=== PATIENT | female | born 1980 | race Caucasian/White ===

== ENCOUNTER → 2016-08-04 | Outpatient (CLI) | payer MEDICAID ==
[2016-08-04 17:39] LABS: Basophils # (A) 0.1 k/uL (0-0.2); Basophils % (A) 1 %; CH 33.2; CHCM 34.5; Eosinophils # (A) 0.2 k/uL (0-0.7); Eosinophils % (A) 2 %; HCT 42.2 % (34.0-46.0); HDW 2.54; HGB 14.2 gm/dL (11.4-16.0); Luc # (Auto) 0.24; Luc % (Auto) 3; Lymphocytes # (A) 2.6 k/uL (1.0-4.8); Lymphocytes % (A) 35 %; MCH 32.4 pg (25.0-35.0); MCHC 33.5 g/dL (31.0-37.0); MCV 96.7 fL (80.0-100.0); Mean Platelet Volume 7.7; Monocytes # (A) 0.3 k/uL (0-1.0); Monocytes % (A) 4 %; Neutrophils # (A) 4.1 k/uL (1.3-7.7); Neutrophils % (A) 55 %; RBC 4.37 m/uL (3.80-5.40); RDW 12.5 % (11.5-15.5); WBC 7.4 k/uL (3.8-10.6)
[2016-08-04 17:51] LABS: ALT 33 U/L (9-52); AST 23 U/L (14-36); Alkaline Phosphatase 27 U/L (38-126); Anion Gap 14 mmol/L; Blood Urea Nitrogen 15 mg/dL (7-17); Calcium 10.3 mg/dL (8.4-10.2); Carbon Dioxide 26 mmol/L (22-30); Chloride 101 mmol/L (98-107); Cholesterol 199 mg/dL (<200); Glucose 86 mg/dL (74-99); HDL Cholesterol 52 mg/dL (40-60); Iron 87 ug/dL (37-170); Non-African American GFR(MDRD) >60 (>60 ml/min/1.73 sqM); Potassium 4.6 mmol/L (3.5-5.1); Sodium 141 mmol/L (137-145); Total Bilirubin 0.4 mg/dL (0.2-1.3); Total Protein 8.2 g/dL (6.3-8.2); Triglycerides 286 mg/dL (<150)
[2016-08-04 18:00] LABS: % Iron Saturation 20.7 % (20-50); Total Iron Binding Capacity 420 ug/dL (265-497)
== END | disposition home or self-care (01) ==
LOC: LABWHC1 17:10
PROVIDERS: ATTEND Physician Assistant Medical
DX: E78.2 Mixed hyperlipidemia (principal); D50.9 Iron deficiency anemia, unspecified
CPT/HCPCS: 36415; 80053; 80061; 82728; 83540; 83550; 84439; 84443; 85025

== ENCOUNTER → 2016-10-12 | Outpatient (CLI) | payer MEDICAID ==
--- NOTE | 2016-10-12 22:36 | XR ---
EXAMINATION TYPE: XR lumbosacral spine min 4V DATE OF EXAM: 10/12/2016 7:42 PM COMPARISON: 02/11/2016 HISTORY: 36-year-old female with fall and back pain TECHNIQUE: 5 views FINDINGS: 5 lumbar type vertebral bodies. No pars interarticularis defect. Vertebral body heights are preserved and alignment is maintained. Redemonstrated moderate degenerative disc interspace narrowing at L5-S1 and mild at L4-L5. Endplate sclerosis and spondylosis at L5-S1. Hypertrophic facet arthropathy lower lumbar spine. IMPRESSION: Similar moderate to severe degenerative disc disease at L5-S1. Mild degenerative disc disease at L4-L 5 may have slightly progressed given slightly more disc interspace narrowing. Hypertrophic facet arth ropathy lower lumbar spine again seen. No vertebral compression collapse or malalignment.
== END ==
LOC: RADXRMAIN 19:27
PROVIDERS: ATTEND Emergency Medicine
DX: M51.37 Other intervertebral disc degeneration, lumbosacral region (principal); M12.88 Other specific arthropathies, not elsewhere classified, other specified site
CPT/HCPCS: 72110

== ENCOUNTER → 2016-12-30 | Outpatient (CLI) | payer MEDICAID ==
[2016-12-30 18:24] LABS: % Iron Saturation 25.4 % (20-50)
== END | disposition home or self-care (01) ==
LOC: LABWHC1 17:20
PROVIDERS: ATTEND Physician Assistant Medical
DX: D50.9 Iron deficiency anemia, unspecified (principal)
CPT/HCPCS: 36415; 82728; 83540; 83550

== ENCOUNTER → 2017-02-21 | Outpatient (CLI) | payer MEDICAID ==
--- NOTE | 2017-02-22 09:35 | XR ---
EXAMINATION TYPE: XR ankle complete RT DATE OF EXAM: 02/21/2017 COMPARISON: NONE HISTORY: Right ankle pain TECHNIQUE: Three-view right ankle FINDINGS: Ankle mortise is intact. Soft tissues are normal. Plantar calcaneal heel spur is present. Follow-up exam can be performed 7-10 days from acute trauma for continued pain. IMPRESSION: 1. Normal three-view right ankle
== END | disposition home or self-care (01) ==
LOC: RADXRMAIN 19:19
PROVIDERS: ATTEND Emergency Medicine
DX: M25.571 Pain in right ankle and joints of right foot (principal)

== ENCOUNTER 2021-01-31 01:37 | Emergency (ER) | payer OTHER ==
[2021-01-31 01:51] VITALS: BP 164/94; PULSE 100; TEMP 98.9
[2021-01-31 02:06] VITALS: RESP 20
--- NOTE | 2021-01-31 02:28 | XR ---
EXAMINATION TYPE: XR chest 2V DATE OF EXAM: 01/31/2021 COMPARISON: NONE HISTORY: Cough TECHNIQUE: 2 views FINDINGS: Heart and mediastinum are normal. Lungs are clear. Diaphragm is normal. Bony thorax appears normal. IMPRESSION: Normal chest.
--- NOTE | 2021-01-31 02:36 | ED ---
General Adult HPI - General Chief complaint: Fever Stated complaint: Fever, SOB Time Seen by Provider: 01/31/21 01:47 Source: patient, family Mode of arrival: ambulatory Limitations: no limitations - History of Present Illness Initial comments: Patient is a 40-year-old female presenting to emergency Department with complaints of increasing cough and a sore throat over the past week. She states that she had a negative Covid test about 2 days ago. She developed a cough and sore throat about one week ago, she was started on amoxicillin, she is on her last dose and feels like the cough is worsening. She denies any fevers or chills. She does have some mild body aches present. No abdominal pain, no nausea or vomiting. She has no history of asthma or COPD, she has no difficulty in breathing. She states she stopped smoking 2 days ago. She denies being . She has no further complaints. Her vitals are stable upon arrival. - Related Data Home Medications Medication Instructions Recorded Confirmed ALPRAZolam [Xanax] 0.25 mg PO BID PRN 12/22/15 12/22/15 Aspirin EC [Ecotrin] 162 mg PO DAILY 12/22/15 12/22/15 Butalb/APAP/Caff 50-325-40Mg 1 tab PO BID PRN 12/22/15 12/22/15 [Fioricet 50-325-40] Fenofibrate 160 mg PO DAILY 12/22/15 12/22/15 Fish Oil/Dha/Epa [Fish Oil 1,200 2 cap PO DAILY 12/22/15 12/22/15 mg Fish Oil] Iferex 150mg 150 mg PO DAILY 12/22/15 12/22/15 Meclizine [Antivert] 25 mg PO TID PRN 12/22/15 12/22/15 Multivitamin/Iron/Folic Acid 1 tab PO DAILY 12/22/15 12/22/15 [Centrum Complete Multivit Tab] PARoxetine HCL [Paxil Cr] 25 mg PO DAILY 12/22/15 12/22/15 Previous Rx's Medication Instructions Recorded Azithromycin 250 mg PO DAILY 4 Days #4 tab 01/31/21 Allergies Allergy/AdvReac Type Severity Reaction Status Date / Time cephalexin [From Keflex] Allergy Rash/Hives Verified 01/31/21 01:44 clindamycin Allergy Rash/Hives Verified 01/31/21 01:44 metformin Allergy Rash/Hives Verified 01/31/21 01:44 metronidazole Allergy Rash/Hives Verified 01/31/21 01:44 Review of Systems ROS Statement: Those systems with pertinent positive or pertinent negative responses have been documented in the HPI. ROS Other: All systems not noted in ROS Statement are negative. Past Medical History Past Medical History: No Reported History History of Any Multi-Drug Resistant Organisms: None Reported Past Surgical History: Joint Replacement, Orthopedic Surgery Past Psychological History: Anxiety Smoking Status: Former smoker Past Alcohol Use History: Occasional Past Drug Use History: None Reported General Exam - General Exam Comments Initial Comments: GENERAL: Patient is well-developed and well-nourished. Patient is nontoxic and in no acute distress. HEAD: Atraumatic, normocephalic. EYES: Pupils equal round and reactive to light, extraocular movements intact, sclera anicteric, conjunctiva are normal. Eyelids were unremarkable. ENT: TMs normal, nares patent, oropharynx clear without exudates. Moist mucous membranes. NECK: Normal range of motion, supple without lymphadenopathy or JVD. LUNGS: Unlabored respirations. Breath sounds clear to auscultation bilaterally and equal. No wheezes rales or rhonchi. HEART: Regular rate and rhythm without murmurs, rubs or gallops. ABDOMEN: Soft, nontender, normoactive bowel sounds. No guarding, no rebound. No masses appreciated. : Deferred MUSCULOSKELETAL: Normal extremities with adequate strength and normal range of motion, no pitting or edema. No clubbing or cyanosis. NEUROLOGICAL: Patient is alert and oriented x 3. SKIN: Warm, Dry, normal turgor, no rashes or lesions noted. Limitations: no limitations Course Vital Signs 01/31/21 01/31/21 01:38 02:04 Temperature 98.9 F Pulse Rate 100 Respiratory 24 20 Rate Blood Pressure 164/94 O2 Sat by Pulse 99 Oximetry Medical Decision Making - Medical Decision Making Patient is a 40-year-old female here with worsening cough, sore throat over the past week. She had a recent rapid and PCR negative Covid test the last 2 days. She has been amoxicillin for the past 5 days without improvement. No fevers, vitals are stable. Her exam is unremarkable. Chest x-ray shows no acute process at this time. I discussed this with the patient. I would recommend switching her antibiotic to azithromycin. She is in agreement with this. I will give her first dose here today. She can follow up with her primary care physician. Case discussed with Dr. Santos. Disposition Clinical Impression: Upper respiratory infection Disposition: HOME SELF-CARE Condition: Stable Instructions (If sedation given, give patient instructions): Upper Respiratory Infection (ED) Additional Instructions: Please return to the Emergency Department if symptoms worsen or any other concerns. Take antibiotics as prescribed. Follow-up with your primary care. Prescriptions: Azithromycin 250 mg PO DAILY 4 Days #4 tab Is patient prescribed a controlled substance at d/c from ED?: No Referrals: Opal Stafford, PAC [Primary Care Provider] - 1-2 days Time of Disposition: 02:50
[2021-01-31] MEDS ORDERED: AZITHROMYCIN 500 MG TAB PO STA (02:46)
== END 2021-01-31 03:00 | disposition home or self-care (01) ==
LOC: EC 01:37
DX: J06.9 Acute upper respiratory infection, unspecified (principal); F41.9 Anxiety disorder, unspecified; Z79.82 Long term (current) use of aspirin; Z88.1 Allergy status to other antibiotic agents; Z87.891 Personal history of nicotine dependence
CPT/HCPCS: 71046; 99283

== ENCOUNTER 2021-05-21 17:51 | Emergency (ER) | payer OTHER ==
[2021-05-21 19:03] VITALS: BP 132/86; PULSE 87; RESP 18; TEMP 98.5
== END 2021-05-21 23:09 | disposition left against medical advice (07) ==
LOC: EC 17:51
DX: Z53.21 Procedure and treatment not carried out due to patient leaving prior to being seen by health care provider (principal); Z20.822 Contact with and (suspected) exposure to COVID-19
CPT/HCPCS: 87635; 99499